=== PATIENT | female | born 1960 | race Caucasian/White ===

== ENCOUNTER 2024-07-04 14:35 | Outpatient (AMB) | payer OTHER, SELFPAY ==
--- NOTE | 2024-07-04 14:46 | A.OFFVIS_ITS ---
Vital Signs 07/04/24 14:49 07/04/24 15:32 Height 5 ft 4 in Weight 131 lb 6.328 oz BMI 22.6 BP 91/43 L 110/59 L Blood Pressure Location Lt brachial Lt brachial Position Sitting Sitting Pulse 59 65 Intake Visit Reasons: Positive Cologuard Intake Note: NEW PATIENT Prema presents in office today for a scheduled colo consult. Patient had an outbreak of herpes and a cologurad was obtained. States she has no concerns today. She mentions having a cyst on her ovary that is being managed. Allergies No Known Allergies Allergy (Verified 07/04/24 14:49) HPI HPI Positive Cologuard: Details: 64 year old? female with past medical history of hypothyroidism and genital herpes is here today for pre colonoscopy screening.? Patient was sent to us by her PCP.? Patient had 1st colonoscopy when she was 50. Second colonoscopy patient was unable to finish her prep and patient broke up with genital herpes around her anal area and the colonoscopy was canceled. Patient believes that genital herpes outbreak is when she is under stressed. Colonoscopy had to be canceled. PCP ordered Cologuard which recently came back positive.? Patient denies any gastrointestinal symptoms in the past or at present.? Denies any personal or family history of gastrointestinal disease, colon polyps, or CRC.? Denies history of difficulty with sedation or anesthesia in the past.? Negative for history of sleep apnea.? Denies any history of cardiac, renal, pulmonary, or hepatic disease.?? No history of infectious? diseases like hepatitis A, B, C, HIV or tuberculosis.? Patient is not on any anticoagulation [facility] Medical History (Updated 07/03/24 @ 16:16 by [facility] Salter [facility]) Constipation Atrophic vaginitis Hypothyroidism Family History (Updated 07/04/24 @ 14:56 by Ammy Rangel Brenda) Father No problems noted. Mother No problems noted. Social History (Updated 07/04/24 @ 14:53 by Ammy Rangel Brenda) Alcohol intake: current Alcohol intake frequency: a few times a month Alcohol type: beer and hard liquor Patient Tobacco Use Status: Former Tobacco user Review of Systems Const Denies weight gain and Denies weight loss ENT Reports no additional complaints, Denies dysphagia and Denies odynophagia Card Reports no additional complaints Resp Reports no additional complaints GI Denies abdominal pain, Denies belching, Denies melena, Denies bloating, Denies change in bowel habits, Denies dysphagia, Denies excessive flatus, Denies dyspepsia, Denies heartburn, Denies diarrhea, Denies loose stools, Denies nausea, Denies odynophagia and Denies vomiting Musc Reports no additional complaints Neuro Reports no additional complaints Psych Reports no additional complaints Endo Reports no additional complaints Physical Exam Vital Signs: Last Vital Signs Pulse 65 07/04/24 15:32 BP 110/59 L 07/04/24 15:32 BMI result Body Mass Index 22.6 Const General: healthy appearing, no acute distress and well developed Nutritional Appearance: well nourished Orientation/consciousness: patient oriented x3 Resp Effort & Inspection: normal respiratory effort, able to speak in complete sentences, no tracheal deviation and symmetric chest movement Auscultation: clear to auscultation bilaterally Cardio Rate: regular rate GI Inspection: Yes normal to inspection and No distended Palpation (GI): Soft to palpation, not firm, nontender and No hepatosplenomegaly present Auscultation: normal bowel sounds General: Yes no CVA tenderness Back/Spine/Pelvis Back: no CVA tenderness Skin General skin exam: elasticity normal, turgor normal and dry skin Neuro General: patient oriented x3 Psych Appearance: grossly normal Mental Status: mental status grossly normal Assessment & Plan Assessment & Plan (1) Positive colorectal cancer screening using Cologuard test: Code(s): R19.5 - Other fecal abnormalities (2) Screen for colon cancer: Code(s): Z12.11 - Encounter for screening for malignant neoplasm of colon Plan Patient denies any GI, cardiac or respiratory symptoms.? Denies any issues with anesthesia in the past.? Denies any history of sleep apnea.? No history infectious diseases in the past or present.? Not on any anticoagulation therapy.? No family or personal history of colon cancer.? Patient denies melena, hematochezia, unintentional weight loss or ribbon like stools.? Discussed at length the pre-procedure,? prep, diet & medications as well as what to expect prior, during and after the procedure.?? Stressed the importance of good bowel prep.? Patient was advised to call her PCP to see if he can order preventative antiviral treatment with acyclovir or valacyclovir to suppress outbreak. Recommend treatment for 5-7 days before the procedure. Recommended the use of Vaseline or Calmoseptine OTC & baby wipes with bowel movements to promote comfo rt.? ?Patient verbalizes understanding and agrees to plan of care.? She was given the opportunity to ask questions and all questions answered.? We will see her after the procedure.? Medications: New bisacodyl (Dulcolax (bisacodyl)) take 4 tabs at noon the day before your colonoscopy 20 mg (4 x 5 mg) PO ONCE 1 day 4 tabs 0RF Z12.11 - Encounter for screening for malignant neoplasm of colon polyethylene glycol 3350 (Miralax) As directed by gastroenterology department at [facility] 238 grams PO ONCE 238 grams 0RF Z12.11 - Encounter for screening for malignant neoplasm of colon Coding Level of Care Code New Pt Level 3 (81076) Diagnoses Positive colorectal cancer screening using Cologuard test R19.5 Screen for colon cancer Z12.11 Time Spent (min) 40 Comment 30 minutes spent with patient and additional 10 minutes spent reviewing her records
[2024-07-04 14:49] VITALS: BP 91/43; PULSE 59; BMI 22.6
[2024-07-04 15:32] VITALS: BP 110/59; PULSE 65
== END 2024-07-05 08:30 | disposition home or self-care (01) ==
PROVIDERS: PCP Family Medicine; Visit Provider Nurse Practitioner Family
DX: Z01.818 Encounter for other preprocedural examination (principal); Z12.11 Encounter for screening for malignant neoplasm of colon; R19.5 Other fecal abnormalities
CPT/HCPCS: 99202